=== PATIENT | female | born 1955 | race Caucasian/White ===

== ENCOUNTER 2017-06-05 11:19 | Emergency (ER) | payer OTHER ==
[2017-06-05] MEDS ORDERED: HYDROcodone/Acetaminophen 5/325 mg Tablet ONE (11:39)
--- NOTE | 2017-06-05 12:59 | RAD ---
\LEFT SHOULDER 3 VIEWS: Date: 06/05/17 PROVIDED CLINICAL HISTORY: Left shoulder pain. FINDINGS: There is a transversely oriented, not significantly displaced fracture of the left humeral metaphysea l region. Nondisplaced greater tuberosity component is also suspected. The glenohumeral relationship appears grossly preserved but the scapular Y view is not optimally positioned. The visualized left ermias ng field appears clear. IMPRESSION: Left proximal humeral fracture as above. POS: [facility]
--- NOTE | 2017-06-05 14:16 | RAD ---
LEFT HUMERUS 2 VIEWS: Date: 06/05/17 HISTORY: Fell off of a trailer. FINDINGS: There is a humeral neck and greater tuberosity fracture. No other abnormalities. IMPRESSION: Fracture through the left humeral neck and greater tuberosity region. POS: STE[facility]AN
== END 2017-06-05 13:11 | disposition home or self-care (01) ==
LOC: NAV ERS 11:19
DX: S42.255A Nondisplaced fracture of greater tuberosity of left humerus, initial encounter for closed fracture (principal); S42.292A Other displaced fracture of upper end of left humerus, initial encounter for closed fracture; I10 Essential (primary) hypertension; Z85.3 Personal history of malignant neoplasm of breast; Z79.899 Other long term (current) drug therapy; W17.89XA Other fall from one level to another, initial encounter
CPT/HCPCS: 29105